=== PATIENT | male | born 1950 | race Asian ===

== ENCOUNTER 2016-11-20 07:30 | Outpatient (CLI) | payer OTHER, MEDICARE ==
[~2016-11-20 07:30] MED LIST: ALLEGRA ALRG180 M1 PO; ASA LO-DOSE81 MG OR; BENZONATATE100 MG PO; CEFD300C2 PO; DEXILANT60 M1 OR; IBUP-587 PO; LIPITOR10 MG PO; MONT10TA PO; MULTIVITAMI1 PO; NEURONTIN600 MG PO; NEXIUM40 M1 PO; RANI150T78 PO; TOPAMAX25 MG OR
[2016-11-20 07:48] LABS: PLATELET COUNT 165 K/uL (142-355)
[2016-11-20 08:03] LABS: POTASSIUM 3.6 mmol/L (3.6-5.2); SODIUM 137 mmol/L (136-145)
== END 2016-11-20 20:02 | disposition home or self-care (01) ==
LOC: LABW 07:30
PROVIDERS: Internal Medicine Hematology & Oncology
DX: D64.89 Other specified anemias (principal); D61.818 Other pancytopenia
CPT/HCPCS: 36415; 80053; 85027

== ENCOUNTER 2017-03-17 06:59 | Outpatient (CLI) | payer OTHER, MEDICARE ==
[2017-03-17 07:24] LABS: PLATELET COUNT 144 K/uL (142-355)
[2017-03-17 08:05] LABS: POTASSIUM 4.1 mmol/L (3.6-5.2); SODIUM 144 mmol/L (136-145)
== END 2017-03-17 19:29 | disposition home or self-care (01) ==
LOC: LABW 06:59
PROVIDERS: Internal Medicine Hematology & Oncology
DX: D61.818 Other pancytopenia (principal); R53.81 Other malaise; D64.9 Anemia, unspecified
CPT/HCPCS: 36415; 80053; 82728; 83540; 83550; 85027

== ENCOUNTER 2017-04-23 07:29 | Outpatient (CLI) | payer OTHER, MEDICARE ==
[2017-04-23 08:49] LABS: PLATELET COUNT 153 K/uL (142-355)
[2017-04-23 08:51] LABS: POTASSIUM 4.3 mmol/L (3.6-5.2); SODIUM 141 mmol/L (136-145)
== END 2017-04-23 19:00 | disposition home or self-care (01) ==
LOC: LABW 07:29
PROVIDERS: Internal Medicine Hematology & Oncology
DX: R53.81 Other malaise (principal)
CPT/HCPCS: 36415; 80053; 85027

== ENCOUNTER 2017-07-08 07:56 | Outpatient (CLI) | payer OTHER, MEDICARE | END 2017-07-08 08:56 | disposition home or self-care (01) | LOC: LABW 07:56 | DX: C61 Malignant neoplasm of prostate (principal) | CPT/HCPCS: 36415; 84153 ==

== ENCOUNTER 2017-07-25 07:02 | Outpatient (CLI) | payer OTHER, MEDICARE ==
[2017-07-25 08:05] LABS: PLATELET COUNT 154 K/uL (142-355)
== END 2017-07-25 19:06 | disposition home or self-care (01) ==
LOC: LABW 07:02
PROVIDERS: Internal Medicine Hematology & Oncology
DX: D61.818 Other pancytopenia (principal)
CPT/HCPCS: 36415; 85027

== ENCOUNTER 2017-09-19 07:26 | Outpatient (CLI) | payer OTHER, MEDICARE ==
[2017-09-19 08:19] LABS: POTASSIUM 3.9 mmol/L (3.6-5.2); SODIUM 138 mmol/L (136-145)
[2017-09-19 08:48] LABS: PLATELET COUNT 128 K/uL (142-355)
== END 2017-09-19 08:30 | disposition home or self-care (01) ==
LOC: LAB 07:26
PROVIDERS: Internal Medicine Hematology & Oncology
DX: D61.818 Other pancytopenia (principal)
CPT/HCPCS: 36415; 80053; 85027

== ENCOUNTER 2017-12-23 07:34 | Outpatient (CLI) | payer OTHER, MEDICARE ==
[2017-12-23 08:09] LABS: PLATELET COUNT 153 K/uL (142-355)
[2017-12-23 08:54] LABS: POTASSIUM 3.6 mmol/L (3.6-5.2)
== END 2017-12-23 18:16 | disposition home or self-care (01) ==
LOC: LABW 07:34
PROVIDERS: Internal Medicine Hematology & Oncology
DX: D72.810 Lymphocytopenia (principal); R53.81 Other malaise; R53.83 Other fatigue; D69.6 Thrombocytopenia, unspecified
CPT/HCPCS: 36415; 80053; 82248; 82728; 83540; 83550; 85027

== ENCOUNTER 2018-04-27 07:37 | Outpatient (CLI) | payer OTHER, MEDICARE ==
[2018-04-27 08:08] LABS: PLATELET COUNT 132 K/uL (142-355)
[2018-04-27 08:18] LABS: POTASSIUM 4.2 mmol/L (3.6-5.2)
== END 2018-04-27 20:12 | disposition home or self-care (01) ==
LOC: LABW 07:37
PROVIDERS: Internal Medicine
DX: E78.00 Pure hypercholesterolemia, unspecified (principal); Z79.899 Other long term (current) drug therapy; Z51.81 Encounter for therapeutic drug level monitoring
CPT/HCPCS: 36415; 80053; 80061; 81000; 84443; 85027

== ENCOUNTER 2018-05-05 07:31 | Outpatient (CLI) | payer OTHER, MEDICARE ==
[2018-05-05 07:45] LABS: PLATELET COUNT 140 K/uL (142-355)
== END 2018-05-05 23:43 | disposition home or self-care (01) ==
LOC: LABW 07:31
PROVIDERS: Nurse Practitioner Family
DX: D72.810 Lymphocytopenia (principal); D64.9 Anemia, unspecified
CPT/HCPCS: 36415; 80053; 82728; 83540; 83550; 85027

== ENCOUNTER 2018-09-08 07:36 | Outpatient (CLI) | payer OTHER, MEDICARE ==
[2018-09-08 08:02] LABS: PLATELET COUNT 146 K/uL (142-355)
== END 2018-09-08 22:19 | disposition home or self-care (01) ==
LOC: LABW 07:36
PROVIDERS: Nurse Practitioner Family
DX: D72.810 Lymphocytopenia (principal); D64.9 Anemia, unspecified
CPT/HCPCS: 36415; 80053; 82728; 83540; 83550; 85027

== ENCOUNTER 2018-10-02 13:30 | Outpatient (CLI) | payer OTHER, MEDICARE | END 2018-10-02 20:55 | disposition home or self-care (01) | LOC: CT 13:30 | DX: G44.211 Episodic tension-type headache, intractable (principal) ==

== ENCOUNTER 2019-01-08 07:01 | Outpatient (CLI) | payer OTHER ==
[2019-01-08 08:21] LABS: PLATELET COUNT 144 K/uL (142-355)
[2019-01-08 09:10] LABS: POTASSIUM 4.1 mmol/L (3.6-5.2)
== END 2019-01-08 19:22 | disposition home or self-care (01) ==
LOC: LABW 07:01
PROVIDERS: Nurse Practitioner Family
DX: D72.810 Lymphocytopenia (principal); D64.9 Anemia, unspecified
CPT/HCPCS: 36415; 80053; 82728; 83540; 83550; 85027

== ENCOUNTER 2019-03-26 10:07 | Outpatient (CLI) | payer OTHER | END 2019-03-26 21:39 | disposition home or self-care (01) | LOC: RAD 10:07 | DX: M79.645 Pain in left finger(s) (principal) ==

== ENCOUNTER 2019-03-29 07:33 | Outpatient (CLI) | payer OTHER | END 2019-03-29 19:15 | disposition home or self-care (01) | LOC: LABW 07:33 | DX: M79.642 Pain in left hand (principal) | CPT/HCPCS: 36415; 84550; 85651; 86038; 86431 ==

== ENCOUNTER 2019-06-21 07:26 | Outpatient (CLI) | payer OTHER ==
[2019-06-21 08:10] LABS: PLATELET COUNT 138 K/uL (142-355)
[2019-06-21 08:14] LABS: POTASSIUM 3.5 mmol/L (3.6-5.2)
== END 2019-06-21 21:49 | disposition home or self-care (01) ==
LOC: LABW 07:26
PROVIDERS: Internal Medicine Medical Oncology
DX: D64.9 Anemia, unspecified (principal)
CPT/HCPCS: 36415; 80053; 82728; 83540; 83550; 85027

== ENCOUNTER 2019-07-14 09:37 | Outpatient (CLI) | payer OTHER | END 2019-07-14 20:28 | disposition home or self-care (01) | LOC: RAD 09:37 | DX: M51.9 Unspecified thoracic, thoracolumbar and lumbosacral intervertebral disc disorder (principal); M25.552 Pain in left hip ==

== ENCOUNTER 2019-10-08 07:30 | Outpatient (CLI) | payer OTHER ==
[2019-10-08 07:54] LABS: PLATELET COUNT 136 K/uL (142-355)
== END 2019-10-08 19:37 | disposition home or self-care (01) ==
LOC: LABW 07:30
PROVIDERS: Internal Medicine
DX: E78.00 Pure hypercholesterolemia, unspecified (principal); D72.818 Other decreased white blood cell count
CPT/HCPCS: 36415; 80053; 80061; 84439; 84443; 85027

== ENCOUNTER 2019-10-26 09:52 | Outpatient (CLI) | payer OTHER ==
[2019-10-26 11:35] LABS: PLATELET COUNT 126 K/uL (142-355)
== END 2019-10-26 17:00 | disposition home or self-care (01) ==
LOC: LABW 09:52 → CT 09:52 → LABW 17:00
PROVIDERS: Internal Medicine
DX: G44.211 Episodic tension-type headache, intractable (principal)
CPT/HCPCS: 36415; 85027; 85651

== ENCOUNTER 2019-11-25 13:42 | Outpatient (CLI) | payer OTHER | END 2019-11-25 19:47 | disposition home or self-care (01) | LOC: RESP 13:42 | DX: I10 Essential (primary) hypertension (principal) | CPT/HCPCS: 93306 ==

== ENCOUNTER 2020-04-26 07:30 | Outpatient (CLI) | payer OTHER ==
[2020-04-26 08:08] LABS: PLATELET COUNT 124 K/uL (142-355)
[2020-04-26 08:33] LABS: POTASSIUM 4.3 mmol/L (3.6-5.2)
== END 2020-04-26 21:28 | disposition home or self-care (01) ==
LOC: LABW 07:30
PROVIDERS: Internal Medicine
DX: I10 Essential (primary) hypertension (principal); G44.211 Episodic tension-type headache, intractable
CPT/HCPCS: 36415; 80053; 80061; 81000; 84439; 84443; 85027

== ENCOUNTER 2020-07-27 07:48 | Outpatient (CLI) | payer OTHER | END 2020-07-27 19:25 | disposition home or self-care (01) | LOC: MRI 07:48 | DX: M51.16 Intervertebral disc disorders with radiculopathy, lumbar region (principal); M16.0 Bilateral primary osteoarthritis of hip | CPT/HCPCS: 36415; 82565; 84520; A9576 ==

== ENCOUNTER 2020-08-08 12:26 | Outpatient (CLI) | payer OTHER | END 2020-08-08 22:34 | disposition home or self-care (01) | LOC: RAD 12:26 | DX: M25.551 Pain in right hip (principal); M25.552 Pain in left hip ==

== ENCOUNTER 2020-10-30 09:20 | Emergency (ER) | payer OTHER ==
[~2020-10-30] VITALS: Ht 177.8 cm; Wt 74.4 kg
[2020-10-30] MEDS ORDERED: HYZAAR1 TA1 PO (09:58)
[2020-10-30] MEDS ORDERED: GABA300C2 PO (09:58)
[2020-10-30] MEDS ORDERED: 24HR ALLERGY R180 MG PO (09:59)
[2020-10-30] MEDS ORDERED: EZALLOR SPRINKL40 MG PO (09:59)
[2020-10-30] MEDS ORDERED: PANTOPRAZOLE SO40 M1 PO (10:00)
[2020-10-30] MEDS ORDERED: ASPIRIN 8181 MG PO (10:01)
[2020-10-30] MEDS ORDERED: FISH OI1 PO (10:01)
[2020-10-30] MEDS ORDERED: CENTRUM SILVER PO (10:02)
[2020-10-30 11:18] VITALS: BP 117/79; TEMP 99.4
== END 2020-10-30 11:18 | disposition home or self-care (01) ==
LOC: ED 09:20
DX: U07.1 COVID-19 (principal); J20.8 Acute bronchitis due to other specified organisms
CPT/HCPCS: 87502; 87635; 99283; U0003

== ENCOUNTER 2020-11-27 10:47 | Outpatient (CLI) | payer OTHER ==
[~2020-11-27 10:47] MED LIST changes: +24HR ALLERGY R180 MG PO; +ASPIRIN 8181 MG PO; +CENTRUM SILVER PO; +EZALLOR SPRINKL40 MG PO; +FISH OI1 PO; +GABA300C2 PO; +HYZAAR1 TA1 PO; +PANTOPRAZOLE SO40 M1 PO
== END 2020-11-27 22:43 | disposition home or self-care (01) ==
LOC: LABW 10:47
PROVIDERS: ATTEND Internal Medicine
DX: Z01.84 Encounter for antibody response examination (principal)
CPT/HCPCS: 36415; 86769

== ENCOUNTER 2020-12-19 14:47 | Outpatient (CLI) | payer OTHER | END 2020-12-19 20:17 | disposition home or self-care (01) | LOC: RAD 14:47 | PROVIDERS: ATTEND Internal Medicine | DX: J40 Bronchitis, not specified as acute or chronic (principal) ==

== ENCOUNTER 2021-01-29 07:29 | Outpatient (CLI) | payer OTHER ==
[2021-01-29 07:48] LABS: PLATELET COUNT 139 K/uL (142-355)
[2021-01-29 08:25] LABS: POTASSIUM 4.3 mmol/L (3.6-5.2)
== END 2021-01-29 19:07 | disposition home or self-care (01) ==
LOC: LABW 07:29
PROVIDERS: ATTEND Internal Medicine
DX: I10 Essential (primary) hypertension (principal); D69.6 Thrombocytopenia, unspecified
CPT/HCPCS: 36415; 80053; 80061; 81000; 84439; 84443; 85027

== ENCOUNTER 2021-02-08 18:29 | Emergency (ER) | payer OTHER ==
[~2021-02-08] VITALS: Ht 177.8 cm; Wt 74.4 kg
[2021-02-08 19:00] VITALS: BP 144/81; TEMP 98.4
== END 2021-02-08 19:00 | disposition home or self-care (01) ==
LOC: ED 18:29
PROC: 09C37ZZ Extirpation of Matter from Right External Auditory Canal, Via Natural or Artificial Opening (ICD-10-PCS; principal; 2021-02-08)
DX: T16.1XXA Foreign body in right ear, initial encounter (principal)
CPT/HCPCS: 99282

== ENCOUNTER 2021-05-26 20:46 | Emergency (ER) | payer OTHER ==
[~2021-05-26] VITALS: Ht 177.8 cm; Wt 74.8 kg
[2021-05-26 21:40] VITALS: BP 154/74; TEMP 98.4
== END 2021-05-26 21:40 | disposition home or self-care (01) ==
LOC: ED 20:46
PROC: 09C47ZZ Extirpation of Matter from Left External Auditory Canal, Via Natural or Artificial Opening (ICD-10-PCS; principal; 2021-05-26)
DX: T16.2XXA Foreign body in left ear, initial encounter (principal); X58.XXXA Exposure to other specified factors, initial encounter; Y93.9 Activity, unspecified; Y92.89 Other specified places as the place of occurrence of the external cause
CPT/HCPCS: 99283

== ENCOUNTER 2021-11-13 13:09 | Outpatient (CLI) | payer OTHER | END 2021-11-13 19:02 | disposition home or self-care (01) | LOC: MRI 13:09 | PROVIDERS: ATTEND Internal Medicine | DX: G44.85 Primary stabbing headache (principal) | CPT/HCPCS: 36415; 82565; 84520; A9576 ==

== ENCOUNTER 2022-02-25 16:35 | Outpatient (CLI) | payer OTHER ==
[2022-02-25 17:25] LABS: POTASSIUM 4.3 mmol/L (3.6-5.2); SODIUM 142 mmol/L (136-145)
[2022-02-25 17:36] LABS: PLATELET COUNT 124 K/uL (142-355)
== END 2022-02-25 19:11 | disposition home or self-care (01) ==
LOC: LAB 16:35
PROVIDERS: ATTEND Internal Medicine
DX: Z00.00 Encounter for general adult medical examination without abnormal findings (principal); Z12.5 Encounter for screening for malignant neoplasm of prostate; Z85.46 Personal history of malignant neoplasm of prostate; Z08 Encounter for follow-up examination after completed treatment for malignant neoplasm; Z79.899 Other long term (current) drug therapy
CPT/HCPCS: 80053; 80061; 81000; 84153; 84439; 84443; 85027

== ENCOUNTER 2022-04-02 09:52 | Outpatient (CLI) | payer OTHER | END 2022-04-02 18:57 | disposition home or self-care (01) | LOC: RAD 09:52 | PROVIDERS: ATTEND Internal Medicine | DX: S33.5XXD Sprain of ligaments of lumbar spine, subsequent encounter (principal) ==

== ENCOUNTER 2022-04-18 08:18 | Outpatient (CLI) | payer OTHER | END 2022-04-18 20:34 | disposition home or self-care (01) | LOC: RAD 08:18 | PROVIDERS: ATTEND Orthopaedic Surgery | DX: M25.551 Pain in right hip (principal); M25.552 Pain in left hip ==

== ENCOUNTER 2022-06-06 07:52 | Outpatient (CLI) | payer OTHER | END 2022-06-06 21:17 | disposition home or self-care (01) | LOC: CT 07:52 | PROVIDERS: ATTEND Student in an Organized Health Care Education/Training Program | DX: K43.9 Ventral hernia without obstruction or gangrene (principal); R10.9 Unspecified abdominal pain; K21.9 Gastro-esophageal reflux disease without esophagitis; K29.70 Gastritis, unspecified, without bleeding | CPT/HCPCS: 36415; 82565; 84520; Q9963 ==

== ENCOUNTER 2022-12-11 07:55 | Outpatient (CLI) | payer OTHER | END 2022-12-11 19:12 | disposition home or self-care (01) | LOC: CT 07:55 | PROVIDERS: ATTEND Internal Medicine | DX: S09.8XXA Other specified injuries of head, initial encounter (principal); Y92.89 Other specified places as the place of occurrence of the external cause ==

== ENCOUNTER 2023-02-26 11:31 | Outpatient (CLI) | payer OTHER | END 2023-02-26 18:59 | disposition home or self-care (01) | LOC: RAD 11:31 | PROVIDERS: ATTEND Internal Medicine | DX: M94.0 Chondrocostal junction syndrome [Tietze] (principal); M25.551 Pain in right hip ==